=== PATIENT | male | born 1975 | race African-American/Black ===

== ENCOUNTER 2024-06-20 21:51 | Inpatient (IN) | payer OTHER ==
[~2024-06-20] VITALS: Ht 180.3 cm; Wt 114.8 kg
[2024-06-20] MEDS ORDERED: NITROGLYCERIN 50MG PREMIX 250 ML IV ONE (22:00)
[2024-06-20] MEDS: NITROGLYCERIN 50MG PREMIX 250 ML IV ONE (22:34)
[2024-06-20 23:12] LABS: CHLORIDE 104 mEq/L (98-107); POTASSIUM 3.6 mEq/L (3.5-5.1); SODIUM 139 mEq/L (136-145)
[2024-06-20 23:13] LABS: CARBON DIOXIDE 26 mEq/L (21-32)
[2024-06-20 23:18] LABS: BASOPHILS % 0.3 % (0.0-2.0); CREATININE 1.5 mg/dL (0.6-1.3); EOSINOPHILS % 1.8 % (0.0-5.0); GLUCOSE 124 mg/dL (70-105); HEMATOCRIT. 52.1 % (42.0-52.0); HEMOGLOBIN. 16.8 g/dL (14.0-18.0); LYMPHOCYTES % 32.6 % (20.0-50.0); MEAN CORPUSCULAR HEMOGLOBIN 27.5 pg (28.0-32.0); MEAN CORPUSCULAR HGB CONC 32.3 g/dL (31.0-37.0); MEAN CORPUSCULAR VOLUME 85.2 fL (80.0-94.0); MONOCYTES % 5.6 % (2.0-8.0); NEUTROPHILS % 59.7 % (40.0-76.0); RED BLOOD CELL COUNT 6.12 mill/uL (4.7-6.1); RED CELL DISTRIBUTION WIDTH 14.2 % (11.6-14.6); WHITE BLOOD COUNT 9.9 x1000/uL (4.5-11.0)
[2024-06-20 23:19] LABS: UREA NITROGEN BLOOD 18 mg/dL (9-23)
[2024-06-20 23:20] LABS: TROPONIN I HIGH SENSITIVITY 33 ng/L (3.0-53)
[2024-06-20 23:24] LABS: DIFFERENTIAL COMMENT 1
[2024-06-21] VITALS (83 sets, daily range): BP systolic 114–214; BP diastolic 63–151; PULSE 55–99; RESP 10–26; TEMP 36.55848–37.0852; O2SAT 89–96
[2024-06-21 00:12] LABS: INR 0.9; PARTIAL THROMBOPLASTIN TIME 26.1 sec (23.4-31.0); PROTHROMBIN TIME 10.6 sec (9.6-11.0)
[2024-06-21 01:17] LABS: PLATELET 178 x1000/uL (130-400)
[2024-06-21 01:18] LABS: MEAN PLATELET VOLUME 10.5 fl (7.4-10.4)
[2024-06-21] MEDS ORDERED: IPRATROPIUM/ALBUTEROL 0.5-3(2.5)MG/3ML NEB HHN PRN (03:00)
[2024-06-21 04:48] LABS: BASOPHILS % 0.5 % (0.0-2.0); DIFFERENTIAL COMMENT 0; EOSINOPHILS % 0.6 % (0.0-5.0); HEMATOCRIT. 48.5 % (42.0-52.0); HEMOGLOBIN. 16.1 g/dL (14.0-18.0); LYMPHOCYTES % 22.1 % (20.0-50.0); MEAN CORPUSCULAR HEMOGLOBIN 28.3 pg (28.0-32.0); MEAN CORPUSCULAR HGB CONC 33.1 g/dL (31.0-37.0); MEAN CORPUSCULAR VOLUME 85.3 fL (80.0-94.0); MEAN PLATELET VOLUME 9.9 fl (7.4-10.4); MONOCYTES % 7.5 % (2.0-8.0); NEUTROPHILS % 69.3 % (40.0-76.0); PLATELET 168 x1000/uL (130-400); RED BLOOD CELL COUNT 5.69 mill/uL (4.7-6.1); RED CELL DISTRIBUTION WIDTH 13.9 % (11.6-14.6); WHITE BLOOD COUNT 9.2 x1000/uL (4.5-11.0)
[2024-06-21 05:04] LABS: TROPONIN I HIGH SENSITIVITY 59 ng/L (3.0-53)
[2024-06-21] MEDS ORDERED: DOCUSATE SODIUM 100MG CAPSULE PO PRN (06:30)
[2024-06-21] MEDS ORDERED: ACETAMINOPHEN 325MG TABLET PO PRN (06:30)
[2024-06-21] MEDS ORDERED: ONDANSETRON HCL 4MG/2ML INJ IV PRN (06:30)
[2024-06-21] MEDS: AMLODIPINE 10MG TABLET PO SCH (06:57)
[2024-06-21] MEDS: HYDRALAZINE HCL 50MG TABLET PO SCH (06:57)
[2024-06-21] MEDS: FOLIC ACID/VITAMIN B COMP W-C TABLET PO SCH (08:53)
[2024-06-21] MEDS: ASPIRIN 81MG TABLET PO SCH (08:53)
[2024-06-21] MEDS: CLONIDINE 0.1MG TABLET PO PRN (08:54)
[2024-06-21] MEDS: ACETAMINOPHEN 325MG TABLET PO PRN (08:54)
[2024-06-21] MEDS: PANTOPRAZOLE 40MG DR TABLET PO SCH (08:54)
[2024-06-21] MEDS: ENOXAPARIN 120MG/0.8ML SYR SUBCUT SCH (08:56)
[2024-06-21 09:04] LABS: LDL CHOLESTEROL 179 mg/dL (5-100); TRIGLYCERIDE 230 mg/dL (0-150)
[2024-06-21 09:05] LABS: ALANINE AMINOTRANSFERASE 25 IU/L (10-49); ALBUMIN 4.4 g/dL (3.2-4.8); ASPARTATE AMINOTRANSFERASE 30 IU/L (<34); BILIRUBIN DIRECT 0.1 mg/dL (<=3.0); CHOLESTEROL 265 mg/dL (<200); HDL CHOLESTEROL 47 mg/dL (>55)
[2024-06-21 09:06] LABS: BILIRUBIN TOTAL 0.5 mg/dL (0.1-1.0); PHOSPHORUS 3.4 mg/dL (2.5-4.9); PROTEIN TOTAL 7.1 g/dL (6.0-8.3)
[2024-06-21 09:08] LABS: T4 FREE 1.09 ng/dL (0.89-1.76); THYROID STIMULATING HORMONE 2.07 uIU/mL (0.55-4.78)
[2024-06-21 09:45] LABS: D-DIMER 0.35 mg/L FEU (<0.50); PROTHROMBIN TIME 10.9 sec (9.6-11.0)
[2024-06-21] MEDS: HYDRALAZINE 20MG/ML VIAL IV PRN (10:10)
[2024-06-21 10:43] LABS: BG BASE EXCESS 0.1 mmol/L (-2.0-3.0); BG DEOXYHEMOGLOBIN 5.3 % (0.0-5.0); BG FRACTION INSPIRED OXYGEN 21; BG HCO3 ACT 24.3 mmol/L (21.0-28.0); BG OXYGEN SATURATION 94.6 % (94.0-98.0); BG OXYHEMOGLOBIN 93.7 % (94.0-98.0); BG PH 7.423 (7.350-7.450); BG SAMPLE SITE RIGHT RADIAL; BG TOTAL HEMOGLOBIN 16.1 g/dL (13.5-17.5); BG VENT MODE ROOM AIR
[2024-06-21] MEDS: HYDROCHLOROTHIAZIDE 25MG TABLET PO SCH (11:43)
[2024-06-21] MEDS: FUROSEMIDE 20MG/2ML VIAL IVP SCH (12:40)
[2024-06-21] MEDS: POTASSIUM CHLORIDE 20MEQ/PACKET PO NR (12:41)
[2024-06-21] MEDS: ISOSORBIDE MONONITRATE 30MG TABLET SR 24HR PO SCH (12:41)
[2024-06-21] MEDS: MAGNESIUM 2 G PREMIX 50 ML IV NR (12:42)
[2024-06-21] MEDS ORDERED: DILTIAZEM HCL 60MG TABLET PO SCH (14:00)
[2024-06-21] MEDS ORDERED: LISINOPRIL 20MG TABLET PO SCH (17:00)
[2024-06-21 18:02] LABS: CHLORIDE 101 mEq/L (98-107); POTASSIUM 3.6 mEq/L (3.5-5.1); SODIUM 136 mEq/L (136-145)
[2024-06-21 18:03] LABS: CARBON DIOXIDE 28 mEq/L (21-32)
[2024-06-21 18:04] LABS: CALCIUM 9.6 mg/dL (8.7-10.4)
[2024-06-21 18:08] LABS: CREATININE 1.4 mg/dL (0.6-1.3)
[2024-06-21 18:09] LABS: GLUCOSE 100 mg/dL (70-105); TROPONIN I HIGH SENSITIVITY 32 ng/L (3.0-53); UREA NITROGEN BLOOD 16 mg/dL (9-23)
[2024-06-21 18:17] LABS: CREATINE KINASE MB FRACTION 1.8 ng/mL (0.5-3.6)
[2024-06-21] MEDS: ATORVASTATIN CALCIUM 40MG TABLET PO SCH (20:22)
[2024-06-21] MEDS: LISINOPRIL 20MG TABLET PO SCH (20:24)
[2024-06-21 21:13] LABS: CLARITY URINE CLEAR (CLEAR); COLOR URINE YELLOW (YELLOW); GLUCOSE URINE NEGATIVE (NEGATIVE); KETONES URINE NEGATIVE (NEGATIVE); LEUKOCYTE ESTERASE URINE NEGATIVE (NEGATIVE); NITRITE URINE NEGATIVE (NEGATIVE); OCCULT BLOOD URINE NEGATIVE (NEGATIVE); PH URINE 7.5 (4.5-8.0); PROTEIN URINE 1+ (NEGATIVE); SPECIFIC GRAVITY URINE 1.017 (1.005-1.030)
[2024-06-21 21:30] LABS: *AMPHETAMINES SCREEN URINE NEGATIVE (NEGATIVE); *BARBITURATES SCREEN URINE NEGATIVE (NEGATIVE); *BENZODIAZEPINES SCREEN URINE NEGATIVE (NEGATIVE); *COCAINE SCREEN URINE NEGATIVE (NEGATIVE); CANNABINOID URINE SCREEN NEGATIVE (NEGATIVE); ECSTASY MDMA SCREEN URINE NEGATIVE (NEGATIVE); METHADONE URINE SCREEN NEGATIVE (NEGATIVE); OPIATES URINE SCREEN NEGATIVE (NEGATIVE); PHENCYCLIDINE URINE SCREEN NEGATIVE (NEGATIVE)
[2024-06-21 21:41] LABS: BACTERIA URINE TRACE; RBC URINE NONE SEEN /hpf (0-2); SQUAMOUS EPITHELIAL CELL URINE RARE /lpf (RARE/1+)
[2024-06-21 21:42] LABS: WBC URINE 0-2 /hpf (0-2)
[2024-06-22] VITALS (40 sets, daily range): BP systolic 93–162; BP diastolic 60–101; PULSE 62–90; RESP 0–20; TEMP 36.55848–37.00296; O2SAT 88–97
[2024-06-22 00:11] LABS: CREATINE KINASE MB FRACTION 2.6 ng/mL (0.5-3.6)
[2024-06-22 05:48] LABS: POTASSIUM 3.6 mEq/L (3.5-5.1)
[2024-06-22 05:49] LABS: BASOPHILS % 0.3 % (0.0-2.0); CALCIUM 9.6 mg/dL (8.7-10.4); EOSINOPHILS % 1.3 % (0.0-5.0); HEMATOCRIT. 49.2 % (42.0-52.0); HEMOGLOBIN. 16.1 g/dL (14.0-18.0); LYMPHOCYTES % 20.4 % (20.0-50.0); MEAN CORPUSCULAR HEMOGLOBIN 28.3 pg (28.0-32.0); MEAN CORPUSCULAR HGB CONC 32.7 g/dL (31.0-37.0); MEAN CORPUSCULAR VOLUME 86.6 fL (80.0-94.0); MEAN PLATELET VOLUME 10.3 fl (7.4-10.4); MONOCYTES % 9.3 % (2.0-8.0); NEUTROPHILS % 68.7 % (40.0-76.0); PLATELET 170 x1000/uL (130-400); RED BLOOD CELL COUNT 5.68 mill/uL (4.7-6.1); RED CELL DISTRIBUTION WIDTH 14.1 % (11.6-14.6); WHITE BLOOD COUNT 9.9 x1000/uL (4.5-11.0)
[2024-06-22 05:54] LABS: CREATININE 1.8 mg/dL (0.6-1.3)
[2024-06-22] MEDS: HYDRALAZINE HCL 25MG TABLET PO SCH (14:03)
[2024-06-22] MEDS: SODIUM CHLORIDE 0.45% 1,000 ML IV SCH (18:14)
[2024-06-22] MEDS: ENOXAPARIN 30MG/0.3ML SYR SUBCUT SCH (20:58)
[2024-06-23] VITALS (8 sets, daily range): BP systolic 136–174; BP diastolic 80–111; PULSE 73–88; RESP 17–18; TEMP 36.28068–36.9474; O2SAT 95–100
[2024-06-23 07:04] LABS: CALCIUM 9.6 mg/dL (8.7-10.4)
[2024-06-23 07:08] LABS: CREATININE 1.7 mg/dL (0.6-1.3)
[2024-06-23 07:12] LABS: BASOPHILS % 0.3 % (0.0-2.0); EOSINOPHILS % 1.4 % (0.0-5.0); HEMATOCRIT. 51.1 % (42.0-52.0); HEMOGLOBIN. 16.9 g/dL (14.0-18.0); LYMPHOCYTES % 25.4 % (20.0-50.0); MEAN CORPUSCULAR HEMOGLOBIN 28.4 pg (28.0-32.0); MEAN CORPUSCULAR VOLUME 86.2 fL (80.0-94.0); MEAN PLATELET VOLUME 10.3 fl (7.4-10.4); MONOCYTES % 10.1 % (2.0-8.0); NEUTROPHILS % 62.8 % (40.0-76.0); PLATELET 182 x1000/uL (130-400); RED BLOOD CELL COUNT 5.93 mill/uL (4.7-6.1); RED CELL DISTRIBUTION WIDTH 14.2 % (11.6-14.6); WHITE BLOOD COUNT 9.2 x1000/uL (4.5-11.0)
[2024-06-23] MEDS ORDERED: METOPROLOL SUCCINATE 50MG ER TABLET PO SCH (12:15)
[2024-06-23] MEDS: SODIUM CHLORIDE 0.9% 1,000 ML IV SCH (14:16)
[2024-06-23] MEDS: HYDROCODONE/ACETAMINOPHEN 10/325MG TABLET PO NR (16:05)
[2024-06-23] MEDS ORDERED: METO-385 PO (18:45)
[2024-06-23] MEDS ORDERED: ASPI-1160 PO (18:45)
[2024-06-23] MEDS ORDERED: PANT40TA51 PO (18:45)
[2024-06-23] MEDS ORDERED: ISOS30TA91 PO (18:45)
[2024-06-23] MEDS ORDERED: FOLI0.8T53 PO (18:45)
[2024-06-23] MEDS ORDERED: LIP40 PO (18:45)
[2024-06-23] MEDS ORDERED: HYDR25TA78 PO (18:45)
[2024-06-23] MEDS: LOSARTAN 50 MG TABLET PO SCH (21:09)
[2024-06-23] MEDS: CARVEDILOL 12.5MG TABLET PO SCH (21:09)
[2024-06-23] MEDS: LOSARTAN 50 MG TABLET PO NR (22:43)
[2024-06-23] MEDS: CLONIDINE 0.1MG TABLET PO PRN (22:43)
[2024-06-24] VITALS: BP 149/84; PULSE 76; RESP 19; TEMP 36.61404; O2SAT 96
[2024-06-24 04:00] VITALS: BP 138/84; PULSE 76; RESP 18; TEMP 36.61404; O2SAT 99
[2024-06-24] MEDS ORDERED: LOSA100T33 MT (07:14)
[2024-06-24 07:56] LABS: BASOPHILS % 0.3 % (0.0-2.0); EOSINOPHILS % 3.4 % (0.0-5.0); HEMATOCRIT. 49.3 % (42.0-52.0); HEMOGLOBIN. 16.2 g/dL (14.0-18.0); LYMPHOCYTES % 26.5 % (20.0-50.0); MEAN CORPUSCULAR HEMOGLOBIN 28.5 pg (28.0-32.0); MEAN CORPUSCULAR HGB CONC 32.9 g/dL (31.0-37.0); MEAN CORPUSCULAR VOLUME 86.7 fL (80.0-94.0); MEAN PLATELET VOLUME 10.4 fl (7.4-10.4); MONOCYTES % 10.5 % (2.0-8.0); NEUTROPHILS % 59.3 % (40.0-76.0); PLATELET 183 x1000/uL (130-400); RED BLOOD CELL COUNT 5.69 mill/uL (4.7-6.1); RED CELL DISTRIBUTION WIDTH 14.1 % (11.6-14.6); WHITE BLOOD COUNT 8.1 x1000/uL (4.5-11.0)
[2024-06-24 08:00] VITALS: BP 144/93; PULSE 77; RESP 18; TEMP 36.22512; O2SAT 98
[2024-06-24 08:20] LABS: CARBON DIOXIDE 28 mEq/L (21-32); CHLORIDE 102 mEq/L (98-107); POTASSIUM 4.2 mEq/L (3.5-5.1); SODIUM 137 mEq/L (136-145)
[2024-06-24 08:26] LABS: CREATININE 1.5 mg/dL (0.6-1.3); GLUCOSE 83 mg/dL (70-105); UREA NITROGEN BLOOD 17 mg/dL (9-23)
[2024-06-24] MEDS: METOPROLOL SUCCINATE 50MG ER TABLET PO SCH (09:17)
[2024-06-24 12:00] VITALS: BP 117/60; PULSE 72; RESP 18; TEMP 36.22512; O2SAT 97
[2024-06-24 14:04] VITALS: BP 117/60; PULSE 72; TEMP 97.2; O2SAT 97
== END 2024-06-24 16:45 | disposition home health service (06) | DRG 280 ==
LOC: ER 21:51 → MICUSO 23:07 → EDBEDREQ 23:16 → 7EST 06-22 13:00
PROVIDERS: ADMIT Internal Medicine; ATTEND Internal Medicine
DX: I11.0 Hypertensive heart disease with heart failure (principal); I50.21 Acute systolic (congestive) heart failure; I21.4 Non-ST elevation (NSTEMI) myocardial infarction; J96.01 Acute respiratory failure with hypoxia; I16.1 Hypertensive emergency; N17.9 Acute kidney failure, unspecified; I42.0 Dilated cardiomyopathy; D53.9 Nutritional anemia, unspecified; Z20.822 Contact with and (suspected) exposure to COVID-19; E78.5 Hyperlipidemia, unspecified; G47.33 Obstructive sleep apnea (adult) (pediatric); F12.90 Cannabis use, unspecified, uncomplicated; J45.909 Unspecified asthma, uncomplicated; R73.03 Prediabetes; F17.200 Nicotine dependence, unspecified, uncomplicated; E66.9 Obesity, unspecified; Z68.35 Body mass index [BMI] 35.0-35.9, adult
CPT/HCPCS: 36415; 36600; 71045; 80048; 80061; 80076; 80305; 81003; 82375; 82550; 82553; 82805; 83036; 83605; 83735; 83880; 84100; 84439; 84443; 84480; 84484; 85025; 85379; 87426; 93005; 93306; 99291; J0360; J1650; J1940; J3475; J3490; J7030